=== PATIENT | male | born 1990 | race African-American/Black ===

== ENCOUNTER 2020-12-02 08:19 | Emergency (ER) | payer OTHER, MEDICAID, SELFPAY ==
[2020-12-02 08:23] VITALS: BP 143/90; PULSE 70; RESP 22; O2SAT 98
--- NOTE | 2020-12-02 08:44 | ED_ITS ---
HPI - Nausea/Vomiting/Diarrhea General Chief complaint: Toxicology Problem Stated complaint: was on suboxone program, relapsed, withdrawal Time Seen by Provider: 12/02/20 08:42 Source: patient Mode of arrival: Ambulatory Limitations: no limitations History of Present Illness HPI Narrative: This is a 30-year-old male comes to the emergency department with complaint of withdrawal symptoms. Patient states he typically uses Percocet and fentanyl, he states his last use was midnight between Tuesday and Tuesday [facility]. Patient states he took his 1st dose of Suboxone and started having nausea, he denies active vomiting. He has had diarrhea, he states he has muscle aches and shaking all over and feels like he is going to . He describes feeling like his legs need to move, ?like restless leg.? Patient denies any fevers. He denies any chest pain or shortness of breath. He denies any black or bloody stools. He denies any difficulty with urination. Patient denies any other medical problems. No regular medications. He denies any prior surgeries. No allergies to medications. He denies tobacco use, rare alcohol use. He denies any IV drug use. Related Data Previous Rx's Medication Instructions Recorded ondansetron HCl [Zofran] 4 mg PO QID PRN #10 tab 12/02/20 ropinirole 0.25 mg PO BEDTIME PRN #7 tab 12/02/20 Allergies Allergy/AdvReac Type Severity Reaction Status Date / Time No Known Drug Allergies Allergy Verified 12/02/20 08:27 Review of Systems Review of Systems ROS Unobtainable: All systems reviewed & are unremarkable except as noted in HPI and below Patient History Social History Smoking Status: Never smoker Smoking Status: Never smoker Substance Use Type: prescription drug Exam Narrative Exam Narrative: GENERAL: Alert and oriented x three, well-appearing male in moderate distress. Patient is mildly diaphoretic. HEENT: Head normocephalic, atraumatic, EOMI, pupils reactive, face symmetric, moist mucous membranes NECK: Supple, full range of motion CARDIOVASCULAR: Regular rate and rhythm without murmurs, rubs or gallops. RESPIRATORY: Breath sounds equal bilaterally, no wheezes rales or rhonchi. ABDOMEN: Soft, nontender. Normoactive bowel sounds all 4 quadrants. No guarding or rebound, rigidity, no mass : No CVA tenderness EXTREMITIES: Normal range of motion, no clubbing or edema. Neurovascularly intact NEUROLOGICAL: Cranial nerves II through XII grossly intact. Moving all extremities SKIN: Warm, dry, no petechiae, no rashes or lesions. Positive for piloerection. Initial Vital Signs Initial Vital Signs: Vital Signs Pulse Rate 70 12/02/20 08:23 Respiratory Rate 22 12/02/20 08:23 Blood Pressure 143/90 H 12/02/20 08:23 Pulse Oximetry 98 12/02/20 08:23 Course Orders Ordered: Discontinued Medications Sodium Chloride (Normal Saline 0.9%) 1,000 mls @ 1,000 mls/hr IV BOLUS ONE Stop: 12/02/20 09:50 Last Infusion: 12/02/20 10:31 Dose: 0 mls/hr Documented by: Admin: 12/02/20 09:06 Dose: 1,000 mls/hr Documented by: JAYME Lorazepam (Lorazepam 2 Mg/Ml Inj) 0.5 mg IV NOW ONE Stop: 12/02/20 08:52 Last Admin: 12/02/20 09:07 Dose: 0.5 mg Documented by: JAYME Ondansetron HCl (Ondansetron 4 Mg/2 Ml Inj) 4 mg IV NOW ONE Stop: 12/02/20 08:52 Last Admin: 12/02/20 09:07 Dose: 4 mg Documented by: JAYME Reevaluation(s) Reevaluation #1: Patient had mild improvement with symptoms. We did discuss if he would be interested inpatient detox but he prefers to return home but wishes to be asymptomatic. Discussed that he can chat with his [facility] provider they may have some additional ideas. He is not supposed to take another dose of Suboxone until he is symptom-free and other 36 hours. He does not wish any narcotics as he does not wish for any narcotics because he does not wish to protracted his withdrawal symptoms. Patient has been ambulating to the bathroom, he has not been having active vomiting in the department. Time: 10:12 Reevaluation #2: Patient does ask for ropinirole prescription he has found this helpful in the past. We also discussed he can contact [facility] for inpatient or outpatient detox options if he would like 2. Patient expresses understanding and comfort with this plan. Time: 11:18 Vital Signs Vital signs: Vital Signs - 8 hr 12/02/20 11:11 Temperature 99.0 F Pulse Rate 83 Respiratory Rate 20 Blood Pressure 138/75 Pulse Oximetry 98 MDM - Nausea/Vomiting/Diarrhea Lab Data Attestation: I reviewed the patient's lab results. Result diagrams: 12/02/20 08:40 12/02/20 08:40 Labs: Lab Results 12/02/20 12/02/20 Range/Units 08:40 08:40 WBC 8.7 (4.5-11.0) X10^3/uL RBC 4.60 (4.5-5.9) X10^6/uL Hgb 13.4 L (13.5-17.5) g/dL Hct 40.0 L (41-53) % MCV 87.0 (80-100) fL MCH 29.1 (26-34) PG MCHC 33.5 (30-36) % RDW 13.2 (11.6-14.8) % Plt Count 503 H (150-400) X10^3/uL Neut % (Auto) 75.7 H (50-75) % Lymph % (Auto) 18.2 L (25-40) % [place] % (Auto) 5.4 (3-14) % Eos % (Auto) 0.2 L (2-4) % Baso % (Auto) 0.5 (0-2) % Neut # (Auto) 6600 (2906-0976) /uL Lymph # (Auto) 1600 (1866-8708) /uL [place] # (Auto) 500 (0-900) /uL Eos # (Auto) 0 (0-450) /uL Baso # (Auto) 0 (0-100) /uL Sodium 136 L (137-145) mmol/L Potassium 3.8 (3.4-5.1) mmol/L Chloride 100 (98-107) mmol/L Carbon Dioxide 25 (22-32) mmol/L BUN 12 (9-20) mg/dL Creatinine 0.79 (0.66-1.25) mg/dL Estimated GFR > 60.0 (>60) mL/min BUN/Creatinine Ratio 15.2 (6-22) Glucose 124 H (70-100) mg/dL Calcium 10.2 (8.4-10.2) mg/dL Total Bilirubin 0.4 (0.2-1.3) mg/dL AST 31 (17-59) IU/L ALT 23 (<50) IU/L Alkaline Phosphatase 101 (38-126) U/L Total Protein 9.4 H (6.3-8.2) g/dL Albumin 4.9 (3.5-5.0) g/dL Globulin 4.5 H (1.7-4.1) g/dL Albumin/Globulin Ratio 1.1 (1.0-2.8) Lipase 217 (23-300) U/L Urine Dip Bedside Urine Glucose Negative Bedside Urine Bilirubin - Negative Bedside Urine Ketone - Negative Urine Specific [place] 1.015 Bedside Urine Occult Blood - Negative Bedside Urine pH 8.0 Bedside Urine Protein - Negative Bedside Urine Urobilinogen - Negative Bedside Urine Nitrite - Negative Bedside Urine Leukocytes - Negative Esterase MDM Narrative Medical decision making narrative: Male who is going through narcotic withdrawal symptoms. Patient had started his Suboxone but was already having some symptoms. He states that his prescription notes he should not take it for a nother 30 hours. Patient was prescribed be [facility]. At this point he does not need increased patient criteria for admission hospital. We do not have inpatient detox but we did discuss that as a possibility. He does not wish to be transferred her sent elsewhere. He would prefer to return home. Patient's labs do not show any major abnormalities. Fluids were given department and he has not had any active vomiting here. He did request a prescription for appeared all which he has had some help with his restless leg symptoms when he has been withdrawing in the past. All questions answered and patient of list recommended to return. Discharge Plan Departure Patient Disposition: Home Clinical Impression: Withdrawal symptoms, drug or narcotic Activity Restrictions/Additional Instructions: Follow up with your provider at [facility]. Call today to discuss your symptoms and options for inpatient or outpatient detox as well. They may have some additional options for symptom control. Take suboxone as prescribed when your symptoms have improved. You may take Zofran 1 tablet every 4 hours as needed for nausea. You may take Ropinirole one tablet prior to sleep. Prescription sent to [facility]. Please return for fevers, lightheadedness or passing out, new chest pain or shortness of breath, persistent vomiting, black or bloody stools or other new or concerning symptoms. Prescriptions: New ondansetron HCl [Zofran] 4 mg tablet 4 mg PO QID PRN (Reason: nausea and vomiting) Qty: 10 RF: 0 ropinirole 0.25 mg tablet 0.25 mg PO BEDTIME PRN (Reason: restless leg(s)) Qty: 7 RF: 0
--- NOTE | 2020-12-02 08:46 | PC.NURSE ---
pt states since he restarted his suboxone he has had diarrhea and restless legs. pt asked am I dying i assured him we will take care of him and try to help him feel better.
[2020-12-02 08:59] LABS: Add Manual Diff / Slide Review NO; Basophils Absolute Auto 0 /uL (0-100); Basophils Percent Auto 0.5 % (0-2); Eosinophils Absolute Auto 0 /uL (0-450); Eosinophils Percent Auto 0.2 % (2-4); Hemoglobin 13.4 g/dL (13.5-17.5); Lymphocytes Absolute Auto 1600 /uL (1100-4500); Lymphocytes Percent Auto 18.2 % (25-40); Mean Corpuscular HGB Conc 33.5 % (30-36); Mean Corpuscular Hemoglobin 29.1 PG (26-34); Monocytes Absolute Auto 500 /uL (0-900); Monocytes Percent Auto 5.4 % (3-14); Neutrophils Absolute Auto 6600 /uL (1500-7000); Neutrophils Percent Auto 75.7 % (50-75); Platelet Count 503 X10^3/uL (150-400); Red Cell Distribution Width 13.2 % (11.6-14.8); White Blood Cell Count 8.7 X10^3/uL (4.5-11.0)
[2020-12-02 09:03] LABS: Alanine Aminotransferase 23 IU/L (<50); Albumin 4.9 g/dL (3.5-5.0); Albumin Globulin Ratio 1.1 (1.0-2.8); Alkaline Phosphatase 101 U/L (38-126); Aspartate Aminotransferase 31 IU/L (17-59); BUN Creatinine Ratio 15.2 (6-22); Bilirubin Total 0.4 mg/dL (0.2-1.3); Blood Urea Nitrogen 12 mg/dL (9-20); Calcium 10.2 mg/dL (8.4-10.2); Carbon Dioxide 25 mmol/L (22-32); Chloride 100 mmol/L (98-107); Estimated Glomerular Filt Rate > 60.0 mL/min (>60); Globulin 4.5 g/dL (1.7-4.1); Glucose 124 mg/dL (70-100); HEMOLYSIS < 15 (0-50); Lipase 217 U/L (23-300); Potassium 3.8 mmol/L (3.4-5.1); Sodium 136 mmol/L (137-145); Total Protein 9.4 g/dL (6.3-8.2)
[2020-12-02] MEDS: SODIUM CHLORIDE 0.9% 1,000 ML 1000 ML IV (09:06)
[2020-12-02] MEDS: ONDANSETRON 4 MG/2 ML INJ IV (09:07)
[2020-12-02] MEDS: LORazepam 2 MG/ML INJ 0.5 MG IV (09:07)
[2020-12-02 11:11] VITALS: BP 138/75; PULSE 83; RESP 20; TEMP 37.2; O2SAT 98
--- NOTE | 2020-12-02 11:12 | PC.NURSE ---
pt refused to sign treatment form i'm too sick i asked again and said its a quick signature and doesn't have to be neat, he rolled over.
== END 2020-12-02 11:30 | disposition home or self-care (01) ==
PROVIDERS: Emergency Provider Emergency Medicine
DX: F19.239 Other psychoactive substance dependence with withdrawal, unspecified (principal)
CPT/HCPCS: 36415; 80053; 81003; 83690; 85025; 96361; 96374; 96375; 99284; J2060; J2405